=== PATIENT | female | born 1980 | race Two or more races ===

== ENCOUNTER → 2024-10-05 | Emergency (ER) | payer MEDICAID ==
[~2024-10-05] VITALS: Ht 165.1 cm; Wt 85.6 kg
[~2024-10-05] MED LIST: MIRT-138 PO
[2024-10-05 19:06] VITALS: BP 125/90; PULSE 75; RESP 16; TEMP 97.6; O2SAT 98
[2024-10-05] MEDS: mirtazapine 15mg tablet PO ONE (20:06)
== END | disposition home or self-care (01) ==
LOC: ER 18:30
DX: F19.239 Other psychoactive substance dependence with withdrawal, unspecified (principal)
CPT/HCPCS: 99283

== ENCOUNTER 2024-10-27 11:12 | Emergency (ER) | payer MEDICAID ==
[~2024-10-27] VITALS: Ht 165.1 cm; Wt 89.9 kg
[2024-10-27 13:03] VITALS: BP 137/88; PULSE 65; RESP 16; TEMP 98; O2SAT 99
== END 2024-10-27 13:04 | disposition home or self-care (01) ==
LOC: ER 11:12
DX: S52.92XA Unspecified fracture of left forearm, initial encounter for closed fracture (principal); Z79.899 Other long term (current) drug therapy; W18.39XA Other fall on same level, initial encounter; Y93.89 Activity, other specified; Y92.89 Other specified places as the place of occurrence of the external cause; Y99.8 Other external cause status
CPT/HCPCS: 29125; 73110; 73130; 99284; A4565; A6446; A6449

== ENCOUNTER 2024-12-06 17:27 | Emergency (ER) | payer MEDICAID ==
[~2024-12-06] VITALS: Ht 165.1 cm; Wt 90.9 kg
[2024-12-06 17:28] VITALS: BP 114/76; PULSE 76; RESP 16; O2SAT 100
[2024-12-06 19:19] VITALS: TEMP 98
== END 2024-12-06 19:23 | disposition home or self-care (01) ==
LOC: ER 17:28
DX: K40.90 Unilateral inguinal hernia, without obstruction or gangrene, not specified as recurrent (principal)
CPT/HCPCS: 99282